=== PATIENT | female | born 1950 ===

== ENCOUNTER → 2021-03-25 | Outpatient (CLI) | payer SELFPAY | END | disposition home or self-care (01) | LOC: LAB SHORT 08:13 | DX: D22.5 Melanocytic nevi of trunk (principal); C44.41 Basal cell carcinoma of skin of scalp and neck | CPT/HCPCS: 88305 ==

== ENCOUNTER → 2021-04-22 | Outpatient (CLI) | payer SELFPAY | END | disposition home or self-care (01) | LOC: LAB SHORT 14:47 | DX: D03.59 Melanoma in situ of other part of trunk (principal) | CPT/HCPCS: 88305 ==

== ENCOUNTER → 2024-03-19 | Outpatient (CLI) | payer MEDICARE, OTHER | LOC: LAB SHORT 15:14 → PLD 15:14 | DX: D48.5 Neoplasm of uncertain behavior of skin (principal) | CPT/HCPCS: 88341; 88342 ==